=== PATIENT | male | born 1950 | race Two or more races ===

== ENCOUNTER 2018-07-11 18:52 | Emergency (ER) | payer MEDICARE, MEDICAID ==
[~2018-07-11] VITALS: Ht 167.6 cm; Wt 69.0 kg
[2018-07-11] MEDS ORDERED: OXYcodone/APAP 5/325MG TABLET ONE (19:25)
[2018-07-11] MEDS ORDERED: ONDANSETRON ODT 4 MG ONE (19:25)
[2018-07-11] MEDS ORDERED: OXYcodone/APAP 5/325MG TABLET PO ONE (19:30)
[2018-07-11] MEDS ORDERED: ONDANSETRON ODT 4 MG PO ONE (19:30)
[2018-07-11 21:17] VITALS: BP 124/80
== END 2018-07-11 21:21 | disposition home or self-care (01) ==
LOC: ED 20:55
DX: S16.1XXA Strain of muscle, fascia and tendon at neck level, initial encounter (principal); S39.012A Strain of muscle, fascia and tendon of lower back, initial encounter; I10 Essential (primary) hypertension; E11.9 Type 2 diabetes mellitus without complications; V53.5XXA Driver of pick-up truck or van injured in collision with car, pick-up truck or van in traffic accident, initial encounter; Y93.89 Activity, other specified; Y92.89 Other specified places as the place of occurrence of the external cause; Y99.8 Other external cause status
CPT/HCPCS: 72110; 72125; 99284; Q0162